=== PATIENT | female | born 1945 | race Caucasian/White ===

== ENCOUNTER 2016-04-04 16:53 | Emergency (ER) | payer OTHER ==
[~2016-04-04] VITALS: Ht 157.5 cm; Wt 90.7 kg
[2016-04-04] MEDS ORDERED: ONDANSETRON HCL 4 MG/2 ML VIAL IV ONE (21:45)
[2016-04-04] MEDS ORDERED: HYDROmorphone HCL 2 MG/ML VL IV ONE (21:45)
[2016-04-04] MEDS ORDERED: MORPHINE SULFATE 4 MG/ML SYRG IV ONE (23:15)
[2016-04-05] MEDS ORDERED: MORPHINE SULFATE 4 MG/ML SYRG IV ONE (01:45)
[2016-04-05] MEDS ORDERED: PROPOFOL 10 MG/ML 20 ML IV ONE (02:00)
[2016-04-05] MEDS ORDERED: PROPOFOL 100 ML IV ONE (02:00)
[2016-04-05] MEDS ORDERED: SODIUM CHLORIDE 0.9% 1,000 ML IV ONE (03:00)
[2016-04-05 03:30] VITALS: BP 119/65
== END 2016-04-05 03:51 | disposition home or self-care (01) ==
LOC: ER 16:56
DX: S82.851A Displaced trimalleolar fracture of right lower leg, initial encounter for closed fracture (principal); E07.9 Disorder of thyroid, unspecified; W19.XXXA Unspecified fall, initial encounter; Y93.89 Activity, other specified; Y99.8 Other external cause status; Y92.89 Other specified places as the place of occurrence of the external cause
CPT/HCPCS: 27818; 73600; 73610; 96361; 96374; 96375; 99152; 99285; J1170; J2270; J2405; J2704